=== PATIENT | male | born 1965 | race American Indian/Alaskan Native ===

== ENCOUNTER 2016-05-11 20:12 | Inpatient (IN) | payer MEDICARE ==
[2016-05-11] MEDS ORDERED: CATAPRES PO ONE (20:38)
[2016-05-11] MEDS ORDERED: DUONEB 0.5 MG-3 MG/3 ML SOLN IH ONE (20:41)
--- NOTE | 2016-05-11 20:47 | Emergency Department Report ---
Chief Complaint: Extremity Problem,Nontraumatic Stated Complaint: BILATERAL LEG SWELLING Time Seen by Provider: 05/11/16 20:38 - HPI History of Present Illness: Patient here reports bilateral leg swelling 3 weeks. He reports shortness of breath when walking. He states that he has sores under his breast That smells foul. Patient reports that he has a history of congestive heart failure and he is on Lasix 80 mg twice a day. He is also C7 on lisinopril and another blood pressure medication that he cannot remember. He said he has a history of asthma also. Denies any chest pain. Reports shortness of breath. Pain to both legs is 10 out of 10 and feels sore. - ROS Review of Systems: all systems are negative unless stated in HPI above. - Exam Vital Signs: Vital Signs 05/11/16 20:21 Temperature 97.4 F L Pulse Rate 74 Respiratory 20 Rate Blood Pressure 184/132 O2 Sat by Pulse 99 Oximetry Physical Exam: General: This is a very morbidly obese male that is nontoxic in appearance. CV: S1, S2. Regular rate and rhythm. Blood pressure is 184/132. Lungs: Expiratory wheezing. Mild increased work of breathing. Positive shortness of breath on exertion. Extremity: Bilateral lower extremity from leg to tolerate his with gross swelling. Palpable pedal pulses. Skin is dry and scaly to both legs. Hyperpigmentation to bilateral lower extremity. Skin: No erythema, tender malodorous area beneath both breasts. MSE screening note: Focused history and physical exam performed. Due to findings the following was ordered:see [facility] ED Medical Decision Making - Medical Decision Making Medical decision making: Patient seen by provider in triage area. Appropriate protocol activated and patient to main ED to be seen by physician. ED Disposition for MSE Condition: Stable
[2016-05-11 21:05] LABS: Basophils % (Auto) 0.9 % (0.0-1.8); Eosinophils % (Auto) 2.3 % (0.0-4.3); Hematocrit 36.1 % (35.5-45.6); Hemoglobin 11.4 gm/dl (11.8-15.2); Mean Corpuscular HGB Conc 32 % (32-34); Mean Corpuscular Volume 80 fl (84-94); Platelet Count 139 K/mm3 (140-440); Red Blood Count 4.49 M/mm3 (3.65-5.03); White Blood Count 4.9 K/mm3 (4.5-11.0)
[2016-05-11 21:06] LABS: Mean Corpuscular Hemoglobin 26 pg (28-32)
[2016-05-11 21:39] LABS: Creatine Kinase MB 1.9 ng/mL (0.0-4.0)
[2016-05-11 21:41] LABS: BUN/Creatinine Ratio 15.33; Blood Urea Nitrogen 23 mg/dL (9-20); Calcium 8.8 mg/dL (8.4-10.2); Carbon Dioxide 28 mmol/L (22-30); Chloride 101.1 mmol/L (98-107); Creatine Kinase 147 units/L (55-170); Glucose 96 mg/dL (75-100); Potassium 3.9 mmol/L (3.6-5.0); Sodium 141 mmol/L (137-145)
[2016-05-11 21:45] LABS: Anion Gap 16 mmol/L
[2016-05-12] MEDS ORDERED: PROVENTIL IH ONE (01:26)
[2016-05-12] MEDS ORDERED: NITRO-BID 2% TP ONE (01:26)
[2016-05-12 01:50] LABS: Bilirubin,Urine NEG (Negative); Blood,Urine NEG (Negative); Ketones,Urine NEG (Negative); Leukocyte Esterase,Urine NEG (Negative); Mucus,Urine FEW /HPF; Nitrite,Urine NEG (Negative); WBC,Urine < 1.0 /HPF (0.0-6.0)
--- NOTE | 2016-05-12 02:08 | Emergency Department Report ---
ED Shortness of Breath HPI - General Chief Complaint: Extremity Problem,Nontraumatic Stated Complaint: BILATERAL LEG SWELLING Time Seen by Provider: 05/11/16 20:53 Source: family, old records reviewed (no previous medical record) Mode of arrival: Ambulatory Limitations: Other - History of Present Illness Initial Comments: 50-year-old male with a past medical history of morbid obesity, asthma, CHF, hypertension, and sleep apnea presents to the Hospital complaining of shortness of breath and bilateral leg swelling for the past 3 weeks. Patient missed a one -month noncompliant with his Lasix 80 mg twice a day to restart the medication last week without improvement. Dyspnea worsened exertion. Patient sleeps to watch 2 pillows at night and uses his CPAP machine as prescribed. He denies chest pain. Patient has 10/10 lower abdominal soreness and suffers from lymphedema. No reports of cough or fever. Patient presents with expiratory wheezing received breathing treatments for wheezing and clonidine for hypertension prior to my evaluation. Patient resides in [place] and is just visiting. He reports that a negative stress test in February this year in [place]. Last travel was first week of March. Patient reports that he recently started prednisone 40 mg that he was previously prescribed due to exacerbation and shortness of breath symptoms. - Related Data Allergies Allergy/AdvReac Type Severity Reaction Status Date / Time No Known Allergies Allergy Verified 05/11/16 20:20 ED Review of Systems ROS: Stated complaint: BILATERAL LEG SWELLING Other details as noted in HPI Comment: All other systems reviewed and negative Other: Constitutional: No fevers chills Eyes: Blind ENT: No ear pain or throat pain Neck: Denies pain Respiratory: As per HPI Cardiovascular: Denies chest pain, palpitations GI: Denies abdominal pain, nausea, vomiting, diarrhea : Denies dysuria Musculoskeletal: As per HPI Skin: Denies rash, lesions, erythema Neurologic: Denies headache, numbness, weakness Psychiatric: Denies suicidal ideation, hallucinations ED Past Medical Hx - Past Medical History Hx Hypertension: Yes Hx Congestive Heart Failure: Yes Hx Arthritis: Yes Hx Asthma: Yes - Surgical History Additional Surgical History: colostomy. hernia repair ED Physical Exam - General Limitations: Other - Other Other exam information: General: No limitations, patient is alert in no acute distress Head exam: Atraumatic, normocephalic Eyes exam: Clinical blindness ENT: Moist mucous membrane, normal oropharynx Neck exam: Normal inspection, full range of motion, no meningismus nontender Respiratory exam: No Rales or crackles. Bilateral expiratory wheezing. No tachypnea or accessory muscle use Abdomen: Soft, nondistended, and nontender, with normal bowel soundrackles Cardiovascular: Normal rate and rhythm, normal heart soundss, no rebound, or guarding Extremity: Full range of motion, significant lower extremity edema secondary to lymphedema. Patient reports right chronically bigger than the left Back: Normal Inspection, full range of motion, nontender Neurologic: Alert, oriented x3, cranial nerves intact, no motor or sensory deficit Psychiatric: normal affect, normal mood Skin: Warm, dry, intact ED Course Vital Signs 05/11/16 05/11/16 05/11/16 20:21 20:54 21:02 Temperature 97.4 F L Pulse Rate 74 74 Pulse Rate [ 89 Anterior] Respiratory 20 Rate Respiratory 25 H Rate [Anterior] Blood Pressure 184/132 184/132 O2 Sat by Pulse 99 Oximetry 05/12/16 02:02 Temperature Pulse Rate 62 Pulse Rate [ Anterior] Respiratory Rate Respiratory Rate [Anterior] Blood Pressure 185/90 O2 Sat by Pulse Oximetry - Reevaluation(s) Reevaluation #1: 05/12/16 02:25 Patient treated with nitroglycerin paste, albuterol, Atrovent, and Solu-Medrol ED Medical Decision Making - Lab Data Result diagrams: 05/11/16 20:47 05/11/16 20:47 Lab Results 05/11/16 05/11/16 05/12/16 Range/Units 20:47 20:47 01:34 WBC 4.9 (4.5-11.0) K/mm3 RBC 4.49 (3.65-5.03) M/mm3 Hgb 11.4 L (11.8-15.2) gm/dl Hct 36.1 (35.5-45.6) % MCV 80 L (84-94) fl MCH 26 L (28-32) pg MCHC 32 (32-34) % RDW 17.0 H (13.2-15.2) % Plt Count 139 L (140-440) K/mm3 Lymph % (Auto) 15.7 (13.4-35.0) % [place] % (Auto) 10.9 H (0.0-7.3) % Eos % (Auto) 2.3 (0.0-4.3) % Baso % (Auto) 0.9 (0.0-1.8) % Lymph # 0.8 L (1.2-5.4) K/mm3 [place] # 0.5 (0.0-0.8) K/mm3 Eos # 0.1 (0.0-0.4) K/mm3 Baso # 0.0 (0.0-0.1) K/mm3 Seg Neutrophils % 70.2 H (40.0-70.0) % Seg Neutrophils # 3.4 (1.8-7.7) K/mm3 Sodium 141 (137-145) mmol/L Potassium 3.9 (3.6-5.0) mmol/L Chloride 101.1 (98-107) mmol/L Carbon Dioxide 28 (22-30) mmol/L Anion Gap 16 mmol/L BUN 23 H (9-20) mg/dL Creatinine 1.5 (0.8-1.5) mg/dL Estimated GFR 50 ml/min BUN/Creatinine Ratio 15.33 % Glucose 96 (75-100) mg/dL Calcium 8.8 (8.4-10.2) mg/dL Total Creatine Kinase 147 (55-170) units/L CK-MB (CK-2) 1.9 (0.0-4.0) ng/mL CK-MB (CK-2) Rel Index 1.2 (0-4) Troponin T < 0.010 (0.00-0.029) ng/mL NT-Pro-B Natriuret Pep 3520 H (0-450) pg/mL Urine Color Yellow (Yellow) Urine Turbidity Clear (Clear) Urine pH 6.0 (5.0-7.0) Ur Specific [place] 1.013 (1.003-1.030) Urine Protein 100 mg/dl (Negative) mg/dL Urine Glucose (UA) Neg (Negative) mg/dL Urine Ketones Neg (Negative) mg/dL Urine Blood Neg (Negative) Urine Nitrite Neg (Negative) Urine Bilirubin Neg (Negative) Urine Urobilinogen 4.0 (<2.0) mg/dL Ur Leukocyte Esterase Neg (Negative) Urine WBC (Auto) < 1.0 (0.0-6.0) /HPF Urine RBC (Auto) 2.0 (0.0-6.0) /HPF Urine Mucus Few /HPF - EKG Data -: EKG Interpreted by Me (sinus 64 pulmonary disease pattern and lateral T wave inversion) - EKG Data When compared to previous EKG there are: previous EKG unavailable - Radiology Data Radiology results: image reviewed (chest x-ray: Cardiomegaly) - Medical Decision Making Plan to admit patient to the hospital. I believe the symptoms are primarily due to asthma. Patient does have poorly controlled blood pressure and concerns for CHF exacerbation. Positive cardiomegaly without pulmonary edema on x-ray at this time. No previous cardiac information available on record - Differential Diagnosis CHF, sleep apnea, bronchitis, pneumonia, asthma exacerbation Critical Care Time: No Critical care attestation.: If time is entered above; I have spent that time in minutes in the direct care of this critically ill patient, excluding procedure time. ED Disposition Clinical Impression: Hypertension, uncontrolled, Lymphedema, Noncompliance with medication regimen Acute asthma exacerbation Qualifiers: Asthma severity: unspecified severity Qualified Code(s): J45.901 - Unspecified asthma with (acute) exacerbation Obesity, morbid Qualifiers: Obesity type: unspecified obesity type Qualified Code(s): E66.01 - Morbid ( severe) obesity due to excess calories CHF (congestive heart failure) Qualifiers: Congestive heart failure type: unspecified congestive heart failure type Congestive heart failure chronicity: chronic Qualified Code(s): I50.9 - Heart failure, unspecified Disposition: OP ADMITTED IP TO THIS HOSP Is pt being admited?: Yes Condition: Stable Time of Disposition: 02:08 (Dr Lopez/hosp)
--- NOTE | 2016-05-12 02:31 | History and Physical Report ---
History of Present Illness Chief complaint: i cant breathe History of present illness: 50 YO Male with CHF, HTN, Asthma, MADINA presents to ED for evaluation. Pt states that he has experienced shortness of breath and leg swelling for the past 3 weeks. Pt symptoms have worsened over the past 3 days. Pt acknowledges orthopnea , PND, as well as noncompliance with his low sodium diet, and Lasix 80 mg twice a day. Pt had recent cardiac workup in [place] including a negative stress test. Pt denies fever, chills, CP, Palpitations, NVD, prolonged travel/ immobility, individual/family history of DVT/PE, productive cough, or recent ill contacts. Past History Past Medical History: heart failure, hypertension Past Surgical History: hernia repair, Other (colostomy) Social history: single. denies: smoking, alcohol abuse Family history: diabetes, hypertension Medications and Allergies Allergies Allergy/AdvReac Type Severity Reaction Status Date / Time No Known Allergies Allergy Verified 05/11/16 20:20 Home Medications Medication Instructions Recorded Confirmed Last Taken Type Albuterol Sulfate [Ventolin HFA] 2 puff IH Q4H PRN 05/12/16 05/12/16 Unknown History Furosemide [Lasix TAB] 80 mg PO QDAY 05/12/16 05/12/16 Unknown History Potassium Chloride [K-Dur] 20 meq PO QDAY 05/12/16 05/12/16 Unknown History predniSONE [Deltasone] 20 mg PO QDAY 05/12/16 05/12/16 Unknown History Review of Systems All systems: negative Cardiovascular: orthopnea, shortness of breath, paroxysmal nocturnal dyspnea, leg edema Exam - Constitutional Vitals: Temp Pulse Resp BP Pulse Ox 97.4 F L 62 25 H 185/90 99 05/11/16 20:21 05/12/16 02:02 05/11/16 21:02 05/12/16 02:02 05/11/16 20:21 General appearance: Present: mild distress - EENT Eyes: Present: PERRL ENT: hearing intact, clear oral mucosa - Neck Neck: Present: supple, normal ROM - Respiratory Respiratory effort: normal Respiratory: bilateral: CTA - Cardiovascular Heart Sounds: Present: S1 & S2. Absent: rub, click - Extremities Extremities: pulses symmetrical, No edema Extremity abnormal: edema Peripheral Pulses: within normal limits - Abdominal General gastrointestinal: Present: soft, non-tender, non-distended, normal bowel sounds Male genitourinary: Present: normal - Integumentary Integumentary: Present: clear, warm, dry - Musculoskeletal Musculoskeletal: gait normal, strength equal bilaterally - Psychiatric Psychiatric: appropriate mood/affect, intact judgment & insight - Neurologic Neurologic: CNII-XII intact, moves all extremities Results - Labs CBC & Chem 7: 05/11/16 20:47 05/11/16 20:47 Labs: Abnormal lab results 05/11/16 05/11/16 Range/Units 20:47 20:47 Hgb 11.4 L (11.8-15.2) gm/dl MCV 80 L (84-94) fl MCH 26 L (28-32) pg RDW 17.0 H (13.2-15.2) % Plt Count 139 L (140-440) K/mm3 [place] % (Auto) 10.9 H (0.0-7.3) % Lymph # 0.8 L (1.2-5.4) K/mm3 Seg Neutrophils % 70.2 H (40.0-70.0) % BUN 23 H (9-20) mg/dL NT-Pro-B Natriuret Pep 3520 H (0-450) pg/mL Assessment and Plan - Patient Problems (1) CHF (congestive heart failure) Current Visit: Yes Status: Acute Qualifiers: Congestive heart failure type: unspecified congestive heart failure type Congestive heart failure chronicity: chronic Qualified Code(s): I50.9 - Heart failure, unspecified Plan to address problem: CHF protocol: Fluid restriction, sodium restriction, diuresis, monitor uop q shift, daily weight, (2) Hypertension, uncontrolled Current Visit: Yes Status: Acute Plan to address problem: monitor bp q shift, resume home medication (3) Noncompliance with medication regimen Current Visit: Yes Status: Acute Plan to address problem: Pt counseled, (4) Bronchitis Current Visit: Yes Status: Acute Plan to address problem: IV abx, steroids, supportive care. (5) DVT prophylaxis Current Visit: Yes Status: Acute
[2016-05-12] MEDS ORDERED: TYLENOL PO PRN (02:33)
[2016-05-12] MEDS ORDERED: SODIUM CHLORIDE FLUSH SYRINGE 10 ML IV PRN (02:41)
[2016-05-12] MEDS ORDERED: LASIX ONE (03:03)
[2016-05-12] MEDS: LASIX IV SCH ×2 (03:08→18:34)
[2016-05-12] MEDS: ZITHROMAX 500 MG in NACL 0.9% 250ML 250 ML IV SCH (04:45)
[2016-05-12 07:34] LABS: Creatine Kinase 135 units/L (55-170)
[2016-05-12] MEDS: APRESOLINE IV PRN ×2 (12:03→22:27)
[2016-05-12 14:03] LABS: Creatine Kinase 129 units/L (55-170)
--- NOTE | 2016-05-12 14:10 | Progress Note ---
Assessment and Plan Assessment and plan: Patient is a 50-year-old man with a history of lymphedema, extreme obesity BMI > 50, MADINA, CHF and hypertension who presents with bilateral leg swelling, out of his lasix x 1 month per patient. Chest x-ray is pending. From [place] and heart records are there with Cardiac cath 2015 per patient 1. Acute on Chronic heart failure: iv lasix, echo pending 2. Accelerated HTN 3. Extreme obesity, bmi is wrong in EMR History Interval history: Patient seen and examined. Follow up on leg edema. Overnight uneventful. No cp, sob, n/v or severe headaches. Imaging, old records, testing, labs, nursing notes reviewed. Hospitalist Physical - Physical exam Narrative exam: GEN: WDWN, extreme obesity, bmi >50, NAD, AWAKE, ALERT, ORIENTATED x 3 HEENT: NCAT, PERRL, OP CLEAR NECK: SUPPLE, NO THYROMEGALY, NO JVD, NO LAD CVS: RRR, NORMAL S1S2 LUNGS/CHEST: CTA B, NORMAL CHEST EXPANSION B, GOOD AIR ENTRY B ABD: SOFT NTND, GBS, NO REBOUND OR GUARDING EXT/SKIN: SIGNIFICANT BLE EDEMA with lymphedema, yeast looking and smelling RASH under left skin folds/pannus MSK: FROM X 4 EXTREMITIES NEURO: CN 2-12 GROSSLY INTACT except from blindness, NO new FOCAL DEFICITS PSY: CALM - Constitutional Vitals: Temp Pulse Resp BP Pulse Ox 97.9 F 60 14 195/109 92 05/12/16 13:32 05/12/16 13:32 05/12/16 13:32 05/12/16 13:32 05/12/16 13:32 Results - Labs CBC & Chem 7: 05/11/16 20:47 05/11/16 20:47 Labs: Laboratory Last Values WBC 4.9 K/mm3 (4.5-11.0) 05/11/16 20:47 RBC 4.49 M/mm3 (3.65-5.03) 05/11/16 20:47 Hgb 11.4 gm/dl (11.8-15.2) L 05/11/16 20:47 Hct 36.1 % (35.5-45.6) 05/11/16 20:47 MCV 80 fl (84-94) L 05/11/16 20:47 MCH 26 pg (28-32) L 05/11/16 20:47 MCHC 32 % (32-34) 05/11/16 20:47 RDW 17.0 % (13.2-15.2) H 05/11/16 20:47 Plt Count 139 K/mm3 (140-440) L 05/11/16 20:47 Lymph % (Auto) 15.7 % (13.4-35.0) 05/11/16 20:47 [place] % (Auto) 10.9 % (0.0-7.3) H 05/11/16 20:47 Eos % (Auto) 2.3 % (0.0-4.3) 05/11/16 20:47 Baso % (Auto) 0.9 % (0.0-1.8) 05/11/16 20:47 Lymph # 0.8 K/mm3 (1.2-5.4) L 05/11/16 20:47 [place] # 0.5 K/mm3 (0.0-0.8) 05/11/16 20:47 Eos # 0.1 K/mm3 (0.0-0.4) 05/11/16 20:47 Baso # 0.0 K/mm3 (0.0-0.1) 05/11/16 20:47 Seg Neutrophils % 70.2 % (40.0-70.0) H 05/11/16 20:47 Seg Neutrophils # 3.4 K/mm3 (1.8-7.7) 05/11/16 20:47 D-Dimer 791.86 ng/mlDDU (0-234) H 05/12/16 02:52 Sodium 141 mmol/L (137-145) 05/11/16 20:47 Potassium 3.9 mmol/L (3.6-5.0) 05/11/16 20:47 Chloride 101.1 mmol/L (98-107) 05/11/16 20:47 Carbon Dioxide 28 mmol/L (22-30) 05/11/16 20:47 Anion Gap 16 mmol/L 05/11/16 20:47 BUN 23 mg/dL (9-20) H 05/11/16 20:47 Creatinine 1.5 mg/dL (0.8-1.5) 05/11/16 20:47 Estimated GFR 50 ml/min 05/11/16 20:47 BUN/Creatinine Ratio 15.33 % 05/11/16 20:47 Glucose 96 mg/dL (75-100) 05/11/16 20:47 Calcium 8.8 mg/dL (8.4-10.2) 05/11/16 20:47 Total Creatine Kinase 129 units/L (55-170) 05/12/16 13:22 CK-MB (CK-2) 2.0 ng/mL (0.0-4.0) 05/12/16 13:22 CK-MB (CK-2) Rel Index 1.5 (0-4) 05/12/16 13:22 Troponin T < 0.010 ng/mL (0.00-0.029) 05/12/16 13:22 NT-Pro-B Natriuret Pep 3520 pg/mL (0-450) H 05/11/16 20:47 Urine Color Yellow (Yellow) 05/12/16 01:34 Urine Turbidity Clear (Clear) 05/12/16 01:34 Urine pH 6.0 (5.0-7.0) 05/12/16 01:34 Ur Specific [place] 1.013 (1.003-1.030) 05/12/16 01:34 Urine Protein 100 mg/dl mg/dL (Negative) 05/12/16 01:34 Urine Glucose (UA) Neg mg/dL (Negative) 05/12/16 01:34 Urine Ketones Neg mg/dL (Negative) 05/12/16 01:34 Urine Blood Neg (Negative) 05/12/16 01:34 Urine Nitrite Neg (Negative) 05/12/16 01:34 Urine Bilirubin Neg (Negative) 05/12/16 01:34 Urine Urobilinogen 4.0 mg/dL (<2.0) 05/12/16 01:34 Ur Leukocyte Esterase Neg (Negative) 05/12/16 01:34 Urine WBC (Auto) < 1.0 /HPF (0.0-6.0) 05/12/16 01:34 Urine RBC (Auto) 2.0 /HPF (0.0-6.0) 05/12/16 01:34 Urine Mucus Few /HPF 05/12/16 01:34
[2016-05-12] MEDS ORDERED: PROVENTIL IH PRN (19:57)
[2016-05-12] MEDS: LOTRIMIN TP SCH (22:31)
--- NOTE | 2016-05-13 00:38 | Admit Criteria Form ---
Admission Criteria Documentation: HEART FAILURE: COMMON COMPLICATIONS Clinical Indications for Inpatient Care (Place 'X' for any and all applicable criteria): Ongoing inpatient care may be indicated for heart failure with ANY ONE of the following (1)(2)(3)(4)(5): [ ]I. Ongoing need for care for primary condition requiring frequent therapy adjustments because of changes in cardiac function (eg, drug dosage changes for drugs that are renally metabolized) [ ]II. New-onset heart failure [ ]III. Heart failure with decreased urine output not responsive to attempts to optimize volume status [ ]IV. Acute cardiac ischemia causing or associated with failure [X ]V. Complications of heart failure, including ANY ONE of the following: [ ]a) Pericardial effusion [ ]b) Symptomatic pleural effusion [ ]c) O2 saturation <90% or PO2 < 60 mm Hg (8.0 kPa) on room air or require baseline supplemental O2 [ ]d) Tachypnea [ X]e) Dyspnea [ ]f) Syncope [ ]g) Change in mental status [ ]h) Acute renal insufficiency that is severe (reduction of more than 50% in estimated glomerular filtration rate from baseline) or progressive reduction of more than 25% in estimated glomerular filtration rate from baseline, with creatinine continuing to rise) [ ]i) Hemodynamic instability [ ]j) Anasarca [ ]k) Clinically significant metabolic abnormalities due to heart failure (eg, new-onset metabolic acidosis) Extended stay beyond goal length of stay for primary condition may be needed until ALL of the following are present(1)(3): [ ]a) Stable and effective diuretic regimen established (or patient on stable dialysis regimen if in chronic renal failure) [ ]b) Breathing comfortably at rest [ ]c) Saturation of arterial oxygen greater than 90% or at acceptable baseline [ ]d) Pulmonary edema absent or improved [ ]e) Hemodynamic stability [ ]f) Volume status acceptable on oral medication [ ]g) Peripheral or sacral edema absent or improved [ ]h) Renal function stable and manageable at a lower level of care [ ]i) Complications (eg, pleural effusion) resolved or manageable at a lower level of care [ ]j) Patient or caregiver has received written discharge instructions or educational material addressing activity level, diet, discharge medications, follow-up appointment, weight monitoring, and what to do if symptoms worsen The original [email or web address] content created by [employer] has been revised. The portions of the content which have been revised are identified through the use of italic text or in bold, and [facility] has neither reviewed nor approved the modified material.All other unmodified content is copyright [facility]. Please see references footnoted in the original [facility] edition 2016 Admission Criteria Met: Yes
[2016-05-13] MEDS: LOTRIMIN TP SCH ×3 (01:00→21:20)
[2016-05-13] MEDS: LASIX IV SCH ×2 (07:04→18:10)
[2016-05-13 08:17] LABS: Hematocrit 35.7 % (35.5-45.6); Mean Corpuscular HGB Conc 31 % (32-34); Mean Corpuscular Volume 81 fl (84-94); Platelet Count 150 K/mm3 (140-440); Red Blood Count 4.42 M/mm3 (3.65-5.03); Red Cell Distribution Width 17.2 % (13.2-15.2); White Blood Count 6.3 K/mm3 (4.5-11.0)
[2016-05-13 08:19] LABS: Anion Gap 20 mmol/L; BUN/Creatinine Ratio 17.69; Blood Urea Nitrogen 23 mg/dL (9-20); Calcium 8.8 mg/dL (8.4-10.2); Carbon Dioxide 24 mmol/L (22-30); Chloride 99.3 mmol/L (98-107); Cholesterol 137 mg/dL (50-199); Glucose 119 mg/dL (75-100); HDL Cholesterol 51 mg/dL (40-59); LDL Cholesterol,Direct 77 mg/dL (50-130); Potassium 3.9 mmol/L (3.6-5.0); Sodium 139 mmol/L (137-145); Triglycerides 49 mg/dL (2-149)
[2016-05-13 08:20] LABS: Mean Corpuscular Hemoglobin 25 pg (28-32)
--- NOTE | 2016-05-13 09:30 | Consultation ---
History of Present Illness Consult date: 05/13/16 Consult reason: congestive heart failure History of present illness: Patient presented with worsening shortness of breath, edema and weight gain. He is known to have heart failure s/p previous hospitalizations in [place]. He reports that in 2014 he had a heart cath showing normal coronaries. He wishes to transfer his care to [place]. Patient is morbidly obese, legally blind. He takes lasix 80 mg po bid. he was not aware of the fluid restriction diet. He has a history of asthma. He denies chest pain. He states that his swelling has been improving since his admission. Past History Past Medical History: heart failure, hypertension Past Surgical History: hernia repair, Other (colostomy) Social history: single. denies: smoking, alcohol abuse Family history: diabetes, hypertension Medications and Allergies Allergies Allergy/AdvReac Type Severity Reaction Status Date / Time No Known Allergies Allergy Verified 05/11/16 20:20 Home Medications Medication Instructions Recorded Confirmed Last Taken Type Albuterol Sulfate [Ventolin HFA] 2 puff IH Q4H PRN 05/12/16 05/12/16 Unknown History Furosemide [Lasix TAB] 80 mg PO QDAY 05/12/16 05/12/16 Unknown History Potassium Chloride [K-Dur] 20 meq PO QDAY 05/12/16 05/12/16 Unknown History predniSONE [Deltasone] 20 mg PO QDAY 05/12/16 05/12/16 Unknown History Active Meds: Active Medications Acetaminophen (Tylenol) 650 mg PO Q4H PRN PRN Reason: Pain MILD(1-3)/Fever >100.5/RUBY Albuterol (Proventil) 2.5 mg IH Q4HRT PRN PRN Reason: Shortness Of Breath Last Admin: 05/12/16 20:16 Dose: 2.5 mg Clotrimazole (Lotrimin) 1 applic TP BID [facility] Last Admin: 05/13/16 01:00 Dose: Not Given Furosemide (Lasix) 40 mg IV 0600,1800 [facility] Last Admin: 05/13/16 07:04 Dose: 40 mg Hydralazine HCl (Apresoline) 10 mg IV Q6HR PRN PRN Reason: Hypertension Last Admin: 05/12/16 22:27 Dose: 10 mg Azithromycin 500 mg/ Sodium (Chloride) 250 mls @ 250 mls/hr IV DAILY [facility] Last Admin: 05/12/16 04:45 Dose: 250 mls/hr Sodium Chloride (Sodium Chloride Flush Syringe 10 Ml) 10 ml IV PRN PRN PRN Reason: LINE FLUSH Review of Systems All systems: negative Physical Examination Vital Signs Temp Pulse Resp BP Pulse Ox 97.4 F L 74 20 184/132 99 05/11/16 20:21 05/11/16 20:21 05/11/16 20:21 05/11/16 20:21 05/11/16 20:21 General appearance: no acute distress HEENT: Positive: PERRL Neck: Positive: neck supple Cardiac: Positive: Reg Rate and Rhythm Lungs: Positive: Decreased Breath Sounds Extremities: Present: +2 Edema Results 05/13/16 07:34 05/13/16 07:34 Cardiac Enzymes 05/12/16 Range/Units 13:22 CK-MB (CK-2) 2.0 (0.0-4.0) ng/mL Lipids 05/13/16 Range/Units 07:34 Triglycerides 49 (2-149) mg/dL Cholesterol 137 (50-199) mg/dL HDL Cholesterol 51 (40-59) mg/dL Cholesterol/HDL Ratio 2.68 % CBC 05/13/16 Range/Units 07:34 WBC 6.3 (4.5-11.0) K/mm3 RBC 4.42 (3.65-5.03) M/mm3 Hgb 11.0 L (11.8-15.2) gm/dl Hct 35.7 (35.5-45.6) % Plt Count 150 (140-440) K/mm3 Comprehensive Metabolic Panel 05/13/16 Range/Units 07:34 Sodium 139 (137-145) mmol/L Potassium 3.9 (3.6-5.0) mmol/L Chloride 99.3 (98-107) mmol/L Carbon Dioxide 24 (22-30) mmol/L BUN 23 H (9-20) mg/dL Creatinine 1.3 (0.8-1.5) mg/dL Glucose 119 H (75-100) mg/dL Calcium 8.8 (8.4-10.2) mg/dL Assessment and Plan Acute on chronic heart failure Unknown etiology (diastolic vs systolic) Normal coronaries by [facility] in 2014 per patient in [place] Morbid obesity Legally blind Non-compliance with fluid restriction Recommendations: Echocardiogram Continue IV diuresis Add afterload reduction with lisinopril
[2016-05-13] MEDS: ZITHROMAX 500 MG in NACL 0.9% 250ML 250 ML IV SCH (10:12)
[2016-05-13] MEDS: ZESTRIL PO SCH (10:20)
--- NOTE | 2016-05-13 11:04 | XRay Report ---
ROUTINE CHEST, TWO VIEWS: HISTORY: Shortness of breath. Very limited exam secondary to body habitus. The trachea, heart, mediastinal contour, lung dwyer and bony thorax are unremarkable. IMPRESSION: Unremarkable chest x-ray.
--- NOTE | 2016-05-13 12:58 | Progress Note ---
Assessment and Plan Assessment and plan: Patient is a 50-year-old man with a history of lymphedema, extreme obesity BMI > 50, MADINA, CHF and hypertension who presents with bilateral leg swelling, out of his lasix x 1 month per patient. Chest x-ray is pending. From [place] and heart records are there with Cardiac cath 2015 per patient 1. Acute on Chronic heart failure suspect diastolic: iv lasix, echo pending 2. Accelerated HTN: add lisinopril 3. Extreme obesity, bmi 61 4. DVT prophylaxis: add subcutaneous heparin Cardiology evaluation pending. Repeat am labs History Interval history: Patient seen and examined. Follow up on leg edema. Overnight uneventful. No cp, sob, n/v or severe headaches. Imaging, old records, testing, labs, nursing notes reviewed. He also has a skin tear lower right calf, present on admission Hospitalist Physical - Physical exam Narrative exam: GEN: WDWN, extreme obesity, bmi 61, NAD, AWAKE, ALERT, ORIENTATED x 3 CVS: RRR, NORMAL S1S2 LUNGS/CHEST: CTA B, NORMAL CHEST EXPANSION B, GOOD AIR ENTRY B ABD: SOFT NTND, GBS, NO REBOUND OR GUARDING EXT/SKIN: SIGNIFICANT BLE EDEMA with lymphedema, yeast looking and smelling RASH under left skin folds/pannus, small quarter size skin tear right calf, poa MSK: FROM X 4 EXTREMITIES NEURO: CN 2-12 GROSSLY INTACT except from blindness, NO new FOCAL DEFICITS PSY: CALM - Constitutional Vitals: Temp Pulse Resp BP Pulse Ox 98.4 F 64 20 169/87 100 05/13/16 11:20 05/13/16 11:20 05/13/16 11:20 05/13/16 11:20 05/13/16 11:20 General appearance: Present: no acute distress Results - Labs CBC & Chem 7: 05/13/16 07:34 05/13/16 07:34 Labs: Laboratory Last Values WBC 6.3 K/mm3 (4.5-11.0) 05/13/16 07:34 RBC 4.42 M/mm3 (3.65-5.03) 05/13/16 07:34 Hgb 11.0 gm/dl (11.8-15.2) L 05/13/16 07:34 Hct 35.7 % (35.5-45.6) 05/13/16 07:34 MCV 81 fl (84-94) L 05/13/16 07:34 MCH 25 pg (28-32) L 05/13/16 07:34 MCHC 31 % (32-34) L 05/13/16 07:34 RDW 17.2 % (13.2-15.2) H 05/13/16 07:34 Plt Count 150 K/mm3 (140-440) 05/13/16 07:34 Lymph % (Auto) 15.7 % (13.4-35.0) 05/11/16 20:47 Reagan % (Auto) 10.9 % (0.0-7.3) H 05/11/16 20:47 Eos % (Auto) 2.3 % (0.0-4.3) 05/11/16 20:47 Baso % (Auto) 0.9 % (0.0-1.8) 05/11/16 20:47 Lymph # 0.8 K/mm3 (1.2-5.4) L 05/11/16 20:47 Reagan # 0.5 K/mm3 (0.0-0.8) 05/11/16 20:47 Eos # 0.1 K/mm3 (0.0-0.4) 05/11/16 20:47 Baso # 0.0 K/mm3 (0.0-0.1) 05/11/16 20:47 Seg Neutrophils % 70.2 % (40.0-70.0) H 05/11/16 20:47 Seg Neutrophils # 3.4 K/mm3 (1.8-7.7) 05/11/16 20:47 D-Dimer 791.86 ng/mlDDU (0-234) H 05/12/16 02:52 Sodium 139 mmol/L (137-145) 05/13/16 07:34 Potassium 3.9 mmol/L (3.6-5.0) 05/13/16 07:34 Chloride 99.3 mmol/L (98-107) 05/13/16 07:34 Carbon Dioxide 24 mmol/L (22-30) 05/13/16 07:34 Anion Gap 20 mmol/L 05/13/16 07:34 BUN 23 mg/dL (9-20) H 05/13/16 07:34 Creatinine 1.3 mg/dL (0.8-1.5) 05/13/16 07:34 Estimated GFR > 60 ml/min 05/13/16 07:34 BUN/Creatinine Ratio 17.69 % 05/13/16 07:34 Glucose 119 mg/dL (75-100) H 05/13/16 07:34 Calcium 8.8 mg/dL (8.4-10.2) 05/13/16 07:34 Total Creatine Kinase 129 units/L (55-170) 05/12/16 13:22 CK-MB (CK-2) 2.0 ng/mL (0.0-4.0) 05/12/16 13:22 CK-MB (CK-2) Rel Index 1.5 (0-4) 05/12/16 13:22 Troponin T < 0.010 ng/mL (0.00-0.029) 05/12/16 13:22 NT-Pro-B Natriuret Pep 3520 pg/mL (0-450) H 05/11/16 20:47 Triglycerides 49 mg/dL (2-149) 05/13/16 07:34 Cholesterol 137 mg/dL (50-199) 05/13/16 07:34 LDL Cholesterol Direct 77 mg/dL (50-130) 05/13/16 07:34 HDL Cholesterol 51 mg/dL (40-59) 05/13/16 07:34 Cholesterol/HDL Ratio 2.68 % 05/13/16 07:34 TSH 1.530 mlU/mL (0.270-4.200) 05/13/16 07:34 Urine Color Yellow (Yellow) 05/12/16 01:34 Urine Turbidity Clear (Clear) 05/12/16 01:34 Urine pH 6.0 (5.0-7.0) 05/12/16 01:34 Ur Specific Ranger 1.013 (1.003-1.030) 05/12/16 01:34 Urine Protein 100 mg/dl mg/dL (Negative) 05/12/16 01:34 Urine Glucose (UA) Neg mg/dL (Negative) 05/12/16 01:34 Urine Ketones Neg mg/dL (Negative) 05/12/16 01:34 Urine Blood Neg (Negative) 05/12/16 01:34 Urine Nitrite Neg (Negative) 05/12/16 01:34 Urine Bilirubin Neg (Negative) 05/12/16 01:34 Urine Urobilinogen 4.0 mg/dL (<2.0) 05/12/16 01:34 Ur Leukocyte Esterase Neg (Negative) 05/12/16 01:34 Urine WBC (Auto) < 1.0 /HPF (0.0-6.0) 05/12/16 01:34 Urine RBC (Auto) 2.0 /HPF (0.0-6.0) 05/12/16 01:34 Urine Mucus Few /HPF 05/12/16 01:34
--- NOTE | 2016-05-13 14:16 | Echocardiography Report ---
Transthoracic Echocardiogram BP: 141/71 Conclusions *The study quality is technically difficult. *Moderate global hypokinesis of the left ventricle is observed. *The estimated ejection fraction is 35-40%. *There is septal flattening of the interventricular septum consistent with right ventricular volume or pressure overload. *The left ventricular diastolic filling pattern is consistent with pseudonormalization. *The left atrium is moderately dilated. *The right ventricle is moderately dilated. *The right ventricular global systolic function is mildly reduced. *The right atrium is moderately dilated. *There is mild mitral regurgitation. *There is mild tricuspid regurgitation. *There is evidence of severe pulmonary hypertension. *The inferior vena cava is dilated. Findings Procedure Info: The study quality is technically difficult. Left Ventricle: The left ventricular chamber size is normal. Moderate global hypokinesis of the left ventricle is observed. Global left ventricular systolic function is moderately decreased. The estimated ejection fraction is 35-40%. There is septal flattening of the interventricular septum consistent with right ventricular volume or pressure overload. The left ventricular diastolic filling pattern is consistent with pseudonormalization. Left Atrium: The left atrium is moderately dilated. Right Ventricle: The right ventricle is moderately dilated. The right ventricular global systolic function is mildly reduced. Right Atrium: The right atrium is moderately dilated. Aortic Valve: The aortic valve is trileaflet. The leaflets are thin with normal excursion. There is no aortic stenosis or regurgitation present. Mitral Valve: There is mitral annular calcification. There is mild mitral regurgitation. Tricuspid Valve: The tricuspid valve leaflets are normal. There is mild tricuspid regurgitation. There is evidence of severe pulmonary hypertension. Pulmonic Valve: The pulmonic valve appears normal in structure and function. Pericardium: There is no pericardial effusion. Aorta: There is no dilatation of the aortic root. Venous: The inferior vena cava is dilated. There is less than 50% respiratory change in the inferior vena cava dimension. Measurements Chambers MM Name Value Normal Range Ao root diameter (MM) 3.5 cm (2 - 3.7) AV cusp separation (MM) 2.3 cm (1.5 - 2.6) Volumes/Mass Name Value Normal Range LA ESV SP 4CH (MOD) 100 ml - LA ESV SP 2CH (MOD) 92 ml - LA ESV BP (MOD) 99 ml - LA ESV BP (MOD) index 33 ml/m2 - LV EDV SP 4CH (MOD) 169 ml - LV ESV SP 4CH (MOD) 81 ml - EF SP 4CH (MOD) 52 % - LV EDV SP 2CH (MOD) 155 ml - LV ESV SP 2CH (MOD) 80 ml - EF SP 2CH (MOD) 48 % - LV EDV BP 167 ml - LV ESV BP 83 ml - BP EF (MOD) 50 % - Diastolic/Systolic Function Name Value Normal Range MV E-wave Vmax 1.23 m/sec - MV deceleration time 113 msec - MV A-wave Vmax 0.43 m/sec - MV E:A ratio 2.8 ratio - LV septal e' Vmax 0.09 m/sec - LV lateral e' Vmax 0.08 m/sec - LV E:e' septal ratio 14 ratio - LV E:e' lateral ratio 15 ratio - Aortic Valve Name Value Normal Range AV VTI 27.2 cm - AV mean gradient 5 mmHg - LVOT diameter 2.4 cm - LVOT VTI 19.9 cm - LVOT mean gradient 3 mmHg - SV LVOT 90 ml - ROMELIA (continuity VTI) 3.31 cm2 - Tricuspid Valve Name Value Normal Range TR Vmax 3.45 m/sec - TR peak gradient 48 mmHg - RAP 5 mmHg - RVSP 65 mmHg -
[2016-05-13] MEDS: HEPARIN SUB-Q SCH (21:17)
[2016-05-13] MEDS: TRIPLE ANTIBIOTIC TP SCH (21:19)
[2016-05-14] MEDS: LASIX IV SCH ×2 (05:26→19:12)
[2016-05-14 05:49] LABS: Hematocrit 34.3 % (35.5-45.6); Hemoglobin 10.7 gm/dl (11.8-15.2); Mean Corpuscular HGB Conc 31 % (32-34); Mean Corpuscular Hemoglobin 26 pg (28-32); Mean Corpuscular Volume 82 fl (84-94); Platelet Count 139 K/mm3 (140-440); Red Cell Distribution Width 17.5 % (13.2-15.2); White Blood Count 5.6 K/mm3 (4.5-11.0)
[2016-05-14 06:09] LABS: BUN/Creatinine Ratio 17.14; Blood Urea Nitrogen 24 mg/dL (9-20); Calcium 8.7 mg/dL (8.4-10.2); Carbon Dioxide 31 mmol/L (22-30); Chloride 100.3 mmol/L (98-107); Glucose 87 mg/dL (75-100); Potassium 3.7 mmol/L (3.6-5.0); Sodium 141 mmol/L (137-145)
[2016-05-14 06:12] LABS: Anion Gap 13 mmol/L
[2016-05-14] MEDS: ZESTRIL PO SCH (10:10)
[2016-05-14] MEDS: TRIPLE ANTIBIOTIC TP SCH ×2 (10:10→22:09)
[2016-05-14] MEDS: LOTRIMIN TP SCH ×2 (10:10→22:10)
[2016-05-14] MEDS: ZITHROMAX 500 MG in NACL 0.9% 250ML 250 ML IV SCH (10:11)
--- NOTE | 2016-05-14 10:36 | Progress Note ---
Addendum entered and electronically signed by ROGER MILAN MD 05/14/16 19:08 : Patient looks and feels better, has no further complaints. Medical therapy for mild to moderate nonischemic cardiomyopathy and mild fluid overload. Original Note: Assessment and Plan Systolic heart failure EF 35-40% on echo this admission Normal coronaries by [facility] at [facility] in 2013/2014 per patient Morbid obesity Legally blind Non-compliance with fluid restriction Recommendations: Continue medical therapy for systolic heart failure including diuretics and afterload reduction. Obtain prior cardiac records. Sodium and fluid restriction. Stable cardiac alfredo for discharge. 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 If plans to stay in [place], f/u with [facility] in 1wk. Subjective Date of service: 05/14/16 Interval history: Patient reports he is diuresing well. States shortness of breath is less. Objective Vital Signs Temp Pulse Pulse Resp BP Pulse Ox 05/14/16 09:55 98 05/14/16 09:11 64 05/14/16 07:20 97.8 F 66 20 165/100 97 05/14/16 05:05 98.5 F 65 22 155/89 95 05/14/16 00:15 97.6 F 68 22 156/84 100 05/13/16 22:05 65 18 97 05/13/16 22:00 76 22 98 05/13/16 20:45 97.3 F L 66 22 161/86 100 05/13/16 15:55 97.6 F 66 20 154/77 96 05/13/16 11:20 98.4 F 64 20 169/87 100 - Physical Examination General: No Apparent Distress Cardiac: Positive: Reg Rate and Rhythm Lungs: Positive: Decreased Breath Sounds Extremities: Present: +2 Edema - Labs and Meds CBC 05/14/16 Range/Units 04:49 WBC 5.6 (4.5-11.0) K/mm3 RBC 4.20 (3.65-5.03) M/mm3 Hgb 10.7 L (11.8-15.2) gm/dl Hct 34.3 L (35.5-45.6) % Plt Count 139 L (140-440) K/mm3 Comprehensive Metabolic Panel 05/14/16 Range/Units 04:49 Sodium 141 (137-145) mmol/L Potassium 3.7 (3.6-5.0) mmol/L Chloride 100.3 (98-107) mmol/L Carbon Dioxide 31 H D (22-30) mmol/L BUN 24 H (9-20) mg/dL Creatinine 1.4 (0.8-1.5) mg/dL Glucose 87 (75-100) mg/dL Calcium 8.7 (8.4-10.2) mg/dL
--- NOTE | 2016-05-14 16:45 | Discharge Summary ---
Providers - Providers Date of Admission: 05/12/16 02:33 Attending physician: OG ALONSO MD 05/12/16 Consult to Cardiac Rehabilitation [CONS] Routine Reason For Exam: Phase I 05/12/16 14:18 Consult to Physician [CONS] Routine Consulting Provider: ANETA COLE Reason For Exam: CHF Place consult to:: Scott Cole MD Notified:: a service Phone number called:: [phone] Was contact made?: Yes If yes, spoke with:: jeremias Time called:: 16:05 Primary care physician: HAIR DRESSER Hospitalization Condition: Stable Hospital course: Patient is a 50-year-old man with a history of lymphedema, extreme obesity BMI > 50, MADINA, CHF and hypertension who presents with bilateral leg swelling, out of his lasix x 1 month per patient. Chest x-ray is pending. From [place] and heart records are there with Cardiac cath 2015 per patient 1. Acute on Chronic heart failure suspect diastolic: treated with IV lasix, Echo showed ef of 35 %, meds optimized, to fup with [facility] in 1 week 2. Accelerated HTN: ' meds were optimized 3. Extreme obesity, bmi 61 4. Chronic LE lymphedema Disposition: DISCHARGED TO HOME OR SELFCARE Time spent for discharge: 35 minutes Core Measure Documentation - Palliative Care Palliative Care/ Comfort Measures: Not Applicable - Core Measures Any of the following diagnoses?: heart failure - Heart Failure Discharge Requirements EVELYN/ARB for LVSD if EF <40%: Yes Beta vanessa at discharge: No Reason for no beta vanessa on DC: Bradycardia Exam - Constitutional Vitals: Temp Pulse Resp BP Pulse Ox 97.4 F L 76 20 131/66 96 05/14/16 12:10 05/14/16 12:10 05/14/16 12:10 05/14/16 12:10 05/14/16 12:10 General appearance: Present: no acute distress, well-nourished - EENT Eyes: Present: PERRL ENT: hearing intact, clear oral mucosa - Neck Neck: Present: supple, normal ROM - Respiratory Respiratory effort: normal Respiratory: bilateral: CTA - Cardiovascular Heart Sounds: Present: S1 & S2. Absent: rub, click - Extremities Extremities: pulses symmetrical, abnormal (bilateral lymphedema) Peripheral Pulses: within normal limits - Abdominal General gastrointestinal: Present: soft, non-tender, non-distended, normal bowel sounds Male genitourinary: Present: normal - Integumentary Integumentary: Present: clear, warm, dry - Musculoskeletal Musculoskeletal: gait normal, strength equal bilaterally - Psychiatric Psychiatric: appropriate mood/affect, intact judgment & insight - Neurologic Neurologic: CNII-XII intact, moves all extremities Plan Follow up with: PRIMARY CARE,MD [Primary Care Provider] - 7 Days Prescriptions: Potassium Chloride [K-Dur] 20 meq PO QDAY #10 tablet Furosemide [Lasix TAB] 80 mg PO QDAY #30 tablet Lisinopril [Zestril TAB] 20 mg PO QDAY #30 tablet
[2016-05-14 17:00] VITALS: BP 152/76
[2016-05-14] MEDS: HEPARIN SUB-Q SCH ×2 (19:12→22:07)
== END 2016-05-14 22:45 | disposition home or self-care (01) | DRG 292 ==
LOC: ED 20:12 → 4A 05-12 02:33
PROVIDERS: ADMIT Internal Medicine; ATTEND Internal Medicine
PROC: 5A09457 Assistance with Respiratory Ventilation, 24-96 Consecutive Hours, Continuous Positive Airway Pressure (ICD-10-PCS; principal; 2016-05-12)
DX: I11.0 Hypertensive heart disease with heart failure (principal); Z68.44 Body mass index [BMI] 60.0-69.9, adult; I50.43 Acute on chronic combined systolic (congestive) and diastolic (congestive) heart failure; I42.9 Cardiomyopathy, unspecified; E66.01 Morbid (severe) obesity due to excess calories; J45.909 Unspecified asthma, uncomplicated; J20.9 Acute bronchitis, unspecified; H54.8 Legal blindness, as defined in USA; M19.90 Unspecified osteoarthritis, unspecified site; G47.33 Obstructive sleep apnea (adult) (pediatric); Z93.3 Colostomy status; Z83.3 Family history of diabetes mellitus; Z82.49 Family history of ischemic heart disease and other diseases of the circulatory system; Z91.14 Patient's other noncompliance with medication regimen
CPT/HCPCS: 36415; 71020; 80048; 80061; 81001; 82550; 82553; 83880; 84443; 84484; 85025; 85027; 85379; 93005; 93010; 93306; 94640; 94660; 96374; A6250; J0360; J0456; J1644; J1940; J2920; J2930; J7050

== ENCOUNTER 2016-06-02 12:43 | Emergency (ER) | payer MEDICARE ==
[2016-06-02] MEDS ORDERED: NORCO 5/325 PO ONE (15:43)
--- NOTE | 2016-06-02 15:56 | Emergency Department Report ---
ED Extremity Problem HPI - General Chief complaint: Extremity Problem,Nontraumatic Stated complaint: RUPUTRED VARICOSE VEIN Time Seen by Provider: 06/02/16 14:56 Source: patient Mode of arrival: Ambulatory Limitations: No Limitations - History of Present Illness Initial comments: 50-year-old male presents to the emergency department via EMS complaining of bleeding from a varicose vein on his left foot. Patient states bleeding began at approximately noon today. He is reporting pain at the site of bleeding. Patient reports he had a similar episode several days ago and was seen at [facility]. Patient also states that he has been out of his blood pressure medication for approximately 2 weeks. There are no other complaints. -: Sudden, This afternoon Time: 12:00 Location: left, lower extremity History of Same: Yes Severity scale (0 -10): 3 Quality: aching Consistency: constant Improves with: nothing Worsens with: nothing Associated Symptoms: denies other symptoms - Related Data Home Medications Medication Instructions Recorded Confirmed Last Taken Albuterol Sulfate [Ventolin HFA] 2 puff IH Q4H PRN 05/12/16 05/12/16 Unknown Previous Rx's Medication Instructions Recorded Last Taken Type Furosemide [Lasix TAB] 80 mg PO QDAY #30 tablet 05/14/16 Unknown Rx Potassium Chloride [K-Dur] 20 meq PO QDAY #10 tablet 05/14/16 Unknown Rx Lisinopril [Zestril TAB] 20 mg PO QDAY #30 tablet 06/02/16 Unknown Rx Allergies Allergy/AdvReac Type Severity Reaction Status Date / Time No Known Allergies Allergy Verified 05/11/16 20:20 ED Review of Systems ROS: Stated complaint: RUPUTRED VARICOSE VEIN Other details as noted in HPI Comment: All other systems reviewed and negative Musculoskeletal: as per HPI, arthralgia Hematological/Lymphatic: as per HPI ED Past Medical Hx - Past Medical History Previous Medical History?: Yes Hx Hypertension: Yes Hx Congestive Heart Failure: Yes Hx Arthritis: Yes Hx Asthma: Yes Additional medical history: Lymphedema - Surgical History Past Surgical History?: Yes Additional Surgical History: colostomy. hernia repair - Family History Family history: no significant - Social History Smoking Status: Never Smoker Substance Use Type: None - Medications Home Medications: Home Medications Medication Instructions Recorded Confirmed Last Taken Type Albuterol Sulfate [Ventolin HFA] 2 puff IH Q4H PRN 05/12/16 05/12/16 Unknown History Furosemide [Lasix TAB] 80 mg PO QDAY #30 tablet 05/14/16 Unknown Rx Potassium Chloride [K-Dur] 20 meq PO QDAY #10 tablet 05/14/16 Unknown Rx Lisinopril [Zestril TAB] 20 mg PO QDAY #30 tablet 06/02/16 Unknown Rx ED Physical Exam - General Limitations: No Limitations General appearance: alert, in no apparent distress - Head Head exam: Present: atraumatic, normocephalic - Eye Eye exam: Present: normal appearance, EOMI - ENT ENT exam: Present: normal exam, normal orophraynx, mucous membranes moist - Neck Neck exam: Present: normal inspection, full ROM. Absent: tenderness - Extremities Exam Extremities exam: Present: full ROM, pedal edema (bilateral), other ( varicosities noted around the left ankle. There is an approximately 5 mm blood clot noted on the skin on the lateral aspect of the left ankle anterior to the lateral malleolus. No active bleeding is noted. Mild tenderness to palpation is noted.). Absent: tenderness - Neurological Exam Neurological exam: Present: alert, oriented X3. Absent: motor sensory deficit - Skin Skin exam: Present: warm, dry ED Course Vital Signs 06/02/16 06/02/16 13:59 16:04 Temperature 98.2 F Pulse Rate 69 Respiratory 18 18 Rate Blood Pressure 171/89 O2 Sat by Pulse 98 Oximetry ED Medical Decision Making - Lab Data Result diagrams: 06/02/16 15:55 - Medical Decision Making Lab results reviewed and discussed with the patient. Patient has had no further bleeding in the emergency department. A compression dressing has been applied over the site. I have discussed the case with Dr. Cash, vascular surgery. Patient will be discharged home to follow up in their office as an outpatient. - Differential Diagnosis ruptured varicose vein, anemia Critical care attestation.: If time is entered above; I have spent that time in minutes in the direct care of this critically ill patient, excluding procedure time. ED Disposition Clinical Impression: Varicose veins of left leg with edema Disposition: DISCHARGED TO HOME OR SELFCARE Is pt being admited?: No Condition: Stable Instructions: Varicose Veins (ED) Prescriptions: Lisinopril [Zestril TAB] 20 mg PO QDAY #30 tablet Referrals: JAVON CASH MD [Staff Physician] - 3-5 Days Time of Disposition: 17:24
[2016-06-02 16:26] LABS: Basophils % (Auto) 0.6 % (0.0-1.8); Eosinophils % (Auto) 4.2 % (0.0-4.3); Hematocrit 38.1 % (35.5-45.6); Hemoglobin 11.8 gm/dl (11.8-15.2); Mean Corpuscular HGB Conc 31 % (32-34); Mean Corpuscular Volume 81 fl (84-94); Platelet Count 129 K/mm3 (140-440); Red Blood Count 4.71 M/mm3 (3.65-5.03); Red Cell Distribution Width 17.9 % (13.2-15.2); White Blood Count 3.8 K/mm3 (4.5-11.0)
[2016-06-02 16:41] LABS: Mean Corpuscular Hemoglobin 25 pg (28-32)
[2016-06-02 20:48] VITALS: BP 164/84
== END 2016-06-02 20:56 | disposition home or self-care (01) ==
LOC: ED 12:43
DX: I83.892 Varicose veins of left lower extremity with other complications (principal); I10 Essential (primary) hypertension; I50.9 Heart failure, unspecified; M19.90 Unspecified osteoarthritis, unspecified site; J45.909 Unspecified asthma, uncomplicated
CPT/HCPCS: 36415; 85025; 99283